=== PATIENT | female | born 1965 | race Hispanic/Latino ===

== ENCOUNTER 2022-04-06 14:14 | Emergency (ER) | payer OTHER ==
--- OUTSIDE RECORDS SUMMARY | 2022-04-06 14:17 | XMS REPORT | Continuity of Care Document ---
:1965 Author Organization [facility] t Address [address] [place] [address] Care Team Providers Name Role Phone Unavailable Unavailable Unavailable Payers Payer Name Policy Type Policy Number Effective Date Expiration Date S ource Problems This patient has no known problems. Allergies, Adverse Reactions, Alerts This patient has no known allergies or adverse reactions. Medications This patient has no known medications. Procedures This patient has no known procedures. Results Test Description Test Time Test Comments Results Result [facility] e Comments - CT MAXIFAC W/O 2018-12-16 Name: ETHAN EL CONTRAST 15:22:00 [facility] : 1965 Age/S: 53 / F [address] [facility] [place] Unit #: [id number] Loc: [place] [address] Phys: Emeka Larose III, MD Acct: [id number] Dis Date: Status: REG CLI PHONE #: [phone] Exam Date: 12/16/2018 1355 FAX #: Reason: CHRONIC SINUS EXAMS: CPT: [id number] CT MAXIFAC W/O CONTRAST 01911 R16 EXAM: - CT MAXIFAC W/O CONTRAST HISTORY: Chronic sinusitis TECHNIQUE: Axial images were obtained through the paranasal sinuses without IV contrast. Sagittal and coronal multiplanar reconstructions were created from the data. One or more of the following dose reduction techniques were used: Automated exposure control, adjustment of the mA and/or kV according to patient size, and/or iterative reconstruction. COMPARISON: None FINDINGS: The frontal sinuses are not pneumatized. The ethmoid sinuses are well-developed and clear. The sphenoid sinuses are well-developed. Moderate because of thickening associated with aerated secretions in both sphenoid sinuses. Bilateral sphenoethmoidal recesses are occluded. Marked focal thinning in the posterior wall of the left sphenoid sinus. The maxillary sinuses are well-developed and clear. The maxillary outflow tracts are patent. Rightward nasal septal deviation. Right middle turbinate ivette bullosa. The visualized facial bones are within normal limits. Specifically, there is no evidence of fracture, dislocation, or aggressive osseous lesions. The globes are normal in size, contour, and position. The course and caliber of the optic nerve sheath complex is within normal limits. The extraocular muscles, intraconal fat, and extraconal fat are within normal limits. The lacrimal glands appear normal. The orbital aguilera and optic canals are normal. The visualized intracranial structures appear normal. No lesion of the visualized skull base or calvarium is present. The visualized PAGE 1 Signed Report (CONTINUED) Name: ETHAN ELland : 1965 Age/S: 53 / F [address] [facility] [place] Unit #: [id number] Loc: [place] [address] Phys: Emeka Larose III, MD Acct: [id number] Dis Date: Status: REG CLI PHONE #: [phone] Exam Date: 12/16/2018 1351 FAX #: Reason: CHRONIC SINUS EXAMS: CPT: [id number] CT MAXIFAC W/O CONTRAST 25231 <Continued> tympanomastoid cavities are unopacified. IMPRESSION: 1. Findings compatible with acute sphenoid sinusitis in the appropriate clinical setting. There is marked focal thinning of the posterior wall of the left sigmoid sinus. 2. Right middle turbinate ivette bullosa and rightward nasal septal deviation. at 1522 Reported and signed by: Daniel Jon M.D. CC: Jack Perez MD; Emeka Larose III, MD Technologist:Emery Gr, RT(R)(CT) CTDI: DLP: Trnscb Date/Time: 12/16/2018 (1522) [email or web address] Orig Print D/T: S: 12/16/2018 (1525) CTDI: DLP: PAGE 2 Signed Report
--- NOTE | 2022-04-06 14:31 | ER ---
Nurse's Notes [facility] Name: Ayesha Arredondo Age: 56 yrs Sex: Female : 1965 Arrival Date: 04/06/2022 Time: 14:16 Bed Waiting Private MD: Diagnosis: Open wound of back s/p cyst removal - encounter for wound check Presentation: 04/06 14:26 Chief complaint: Patient states: Thursday had cyst removed from right scapular area aa5 and wanted wound checked. Coronavirus screen: At this time, the client does not indicate any symptoms associated with coronavirus-19. Ebola Screen: No symptoms or risks identified at this time. Initial Sepsis Screen: Does the patient meet any 2 criteria? No. Patient's initial sepsis screen is negative. Does the patient have a suspected source of infection? No. Patient's initial sepsis screen is negative. Risk Assessment: Do you want to hurt yourself or someone else? Patient reports no desire to harm self or others. Onset of symptoms was March 2022. 14:26 Method Of Arrival: Ambulatory aa5 14:26 Acuity: SANTOSH 5 aa5 Historical: - Allergies: 14:28 hydromorphone HCl; aa5 14:28 Macrobid; aa5 14:28 Nitrofurantoin; aa5 - PMHx: 14:28 allergies; Depressive disorder; aa5 - Immunization history:: Adult Immunizations unknown. - Social history:: Smoking status: Patient reports the use of cigarette tobacco products, smokes one-half pack cigarettes per day. Assessment: 14:30 Reassessment: Patient is alert, oriented x 3, equal unlabored respirations, skin aa5 warm/dry/pink. Vital Signs: 14:26 BP 126 / 79; Pulse 99; Resp 18 S; Temp 97.7(TE); Pulse Ox 95% on R/A; aa5 ED Course: 14:16 Patient arrived in ED. as 14:21 Mehreen Bran [facility]C [facility] kb 14:21 Jonny Jean MD is Attending Physician. kb 14:26 Arm band placed on. aa5 14:28 Triage completed. aa5 14:30 No provider procedures requiring assistance completed. Patient did not have IV access aa5 during this emergency room visit. Administered Medications: No medications were administered Outcome: 14:30 Discharge ordered by . evan 14:30 Discharged to home ambulatory. aa5 14:30 Condition: good 14:30 Discharge instructions given to patient, Instructed on discharge instructions, follow up and referral plans. Demonstrated understanding of instructions, follow-up care. 14:33 Patient left the ED. aa5 Signatures: Mehreen Bran, WELDING EQUIPMENT REPAIRER SUPERVISOR-C MYA-Alivia Bustamante Audri, RN RN aa5 Corrections: (The following items were deleted from the chart) 14: 14:28 Allergies: metronidazole; aa5 aa5 14:30 14:28 PMHx: allegies; aa5 aa5
--- NOTE | 2022-04-06 14:31 | EDPHYS ---
Physician Documentation [facility] Name: Ayesha Arredondo Age: 56 yrs Sex: Female : 1965 Arrival Date: 04/06/2022 Time: 14:16 Bed Waiting Private MD: ED Physician Jonny Jean HPI: 04/06 15:19 This 56 yrs old Female presents to ER via Ambulatory with complaints of Wound kb Check. 15:19 Patient presents to ED for recheck of: open wound s/p cyst removal. The affected area kb is on the right scapular area. Previous treatment: The patient was initially treated 5 day(s) ago, the care was rendered at the patient's primary care provider's office. The patient has not experienced similar symptoms in the past. The patient has not recently seen a physician. Pt states she had a cyst removed on Thursday and when she took the bandage off today she still saw a hole so she wanted to get it looked at. States "I thought it would have closed up by now.". Historical: - Allergies: 14:28 hydromorphone HCl; aa5 14:28 Macrobid; aa5 14:28 Nitrofurantoin; aa5 - PMHx: 14:28 allergies; Depressive disorder; aa5 - Immunization history:: Adult Immunizations unknown. - Social history:: Smoking status: Patient reports the use of cigarette tobacco products, smokes one-half pack cigarettes per day. ROS: 15:17 Constitutional: Negative for fever, chills, and weight loss. kb 15:17 Skin: Positive for of the right scapular area, open wound . 15:17 All other systems are negative. Exam: 15:17 Constitutional: This is a well developed, well nourished patient who is awake, alert, kb and in no acute distress. Head/Face: Normocephalic, atraumatic. Respiratory: Respirations even and unlabored. No increased work of breathing. Talking in full sentences MS/ Extremity: Pulses equal, no cyanosis. Neurovascular intact. Full, normal range of motion. Neuro: Awake and alert, GCS 15, oriented to person, place, time, and situation. Moves all extremities. Normal gait. Psych: Awake, alert, with orientation to person, place and time. Behavior, mood, and affect are within normal limits. 15:17 Skin: Wound recheck: open circular wound to right scapular area s/o cyst removal. No redness, drainage, swelling or other signs of infection, . Vital Signs: 14:26 BP 126 / 79; Pulse 99; Resp 18 S; Temp 97.7(TE); Pulse Ox 95% on R/A; aa5 MDM: 14:27 Patient medically screened. kb 15:19 Data reviewed: vital signs, nurses notes. Data interpreted: Pulse oximetry: on room air kb is 95 %. Interpretation: normal. Counseling: I had a detailed discussion with the patient and/or guardian regarding: the historical points, exam findings, and any diagnostic results supporting the discharge/admit diagnosis, the need for outpatient follow up, a family practitioner, to return to the emergency department if symptoms worsen or persist or if there are any questions or concerns that arise at home. Administered Medications: No medications were administered Disposition: 16:07 Co-signature as Attending Physician, Jonny Jean MD I agree with the assessment and kdr plan of care. Disposition Summary: 04/06/22 14:30 Discharge Ordered Location: Home kb Condition: Stable kb Diagnosis - Open wound of back s/p cyst removal - encounter for wound check kb Followup: kb - With: Emergency Department - When: As needed - Reason: Worsening of condition Followup: kb - With: Private Physician - When: 2 - 3 days - Reason: Recheck today's complaints, Continuance of care, Re-evaluation by your physician Discharge Instructions: - Discharge Summary Sheet kb - Epidermal Cyst Removal, Care After kb Forms: - Medication Reconciliation Form kb - Thank You Letter kb - Antibiotic Education kb - Prescription Opioid Use kb Signatures: Mehreen Bran, ENAMEL APPLIER-C ENAMEL APPLIER-Asafb Jonny Jean MD MD kdr Calderon, Audri, RN RN aa5 Corrections: (The following items were deleted from the chart) 14:30 14:28 Allergies: metronidazole; aa5 aa5 14:30 14:28 PMHx: allegies; aa5 aa5
[2022-04-06 15:57] VITALS: BP 126/79; TEMP 97.7; O2SAT 95
== END 2022-04-06 14:33 | disposition home or self-care (01) ==
LOC: ER 14:14
DX: S21.201D Unspecified open wound of right back wall of thorax without penetration into thoracic cavity, subsequent encounter (principal); Z98.890 Other specified postprocedural states; F17.210 Nicotine dependence, cigarettes, uncomplicated; Z88.5 Allergy status to narcotic agent; Z88.8 Allergy status to other drugs, medicaments and biological substances
CPT/HCPCS: 99281

== ENCOUNTER 2022-10-05 14:50 | Emergency (ER) | payer OTHER ==
--- OUTSIDE RECORDS SUMMARY | 2022-10-05 14:53 | XMS REPORT | Continuity of Care Document ---
:1965 Author Organization [facility] t Address [address] [place] [address] Care Team Providers Name Role Phone Unavailable [...] Description Test Time Test Comments Results Result [facility] e Comments - CT MAXIFAC W/O 2018-12-16 Name: ETHAN EL CONTRAST 15:22:00 [facility] : 1965 Age/S: 53 / F [address] [address] Unit #: [id number] Loc: [place] [address] Phys: Emeka Larose III, MD Acct: [id number] Dis Date: Status: REG CL PHONE #: [phone] Exam Date: 12/16/2018 1356 FAX #: Reason: CHRONIC SINUS EXAMS: CPT: [id number] CT MAXIFAC W/O CONTRAST 28554 R16 EXAM: - CT MAXIFAC W/O CONTRAST [...] PAGE 1 Signed Report (CONTINUED) Name: ETHAN EL : 1965 Age/S: 53 / F [address] [facility] Unit #: [id number] Loc: [place] [address] Phys: Emeka Larose III, MD Acct: [id number] Dis Date: Status: REG CLI PHONE #: [phone] Exam Date: 12/16/2018 1358 FAX #: Reason: CHRONIC SINUS EXAMS: CPT: [id number] CT MAXIFAC W/O CONTRAST 18508 (Continued) tympanomastoid cavities are unopacified. IMPRESSION: 1. Findings compatible with acute sphenoid sinusitis in the appropriate clinical setting. There is marked focal thinning of the posterior wall of the left sigmoid sinus. 2. Right middle turbinate ivette bullosa and rightward nasal septal deviation. at 1522 Reported and signed by: Daniel Jon M.D. CC: Jack Perez MD; Emeka Larose III, MD Technologist:Emery Gr RT(R)(CT) CTDI: DLP: Trnscb Date/Time: 12/16/2018 (1522) [email or web address] Orig Print D/T: S: 12/16/2018 (8524) CTDI: JESUSP: PAGE 2 Signed Report
[2022-10-05] MEDS ORDERED: KETOROLAC 30 MG/ML INJ ONE (15:40)
[2022-10-05 16:15] LABS: Absolute Lymphocytes (CBC) 3.2 K/uL (0.7-4.9); Hematocrit 44.4 % (36.0-45.0); Lymphocytes % 41.2 % (15.3-44.8); MCV 92.1 fL (80-100); MPV 7.6 fL (7.6-11.3); RBC Red Blood Cell Count 4.82 M/uL (3.86-4.86)
[2022-10-05 16:24] LABS: Potassium 3.7 mmol/L (3.5-5.1)
--- NOTE | 2022-10-05 17:57 | ER ---
Nurse's Notes [facility] Name: Ayesha Arredondo Age: 57 yrs Sex: Female : 1965 Arrival Date: 10/05/2022 Time: 14:53 Bed 6 Private MD: Diagnosis: Headache;Other fatigue;Pain in left shoulder Presentation: 10/05 15:02 Chief complaint: Patient states: everything started 3 months ago with increased kb3 allergies. PCP started me on a nasal spray in addition to the loratidine and Singulair that I already take. For the last 2 weeks I have had a left-sided headache 9/10 pressure that goes into my left shoulder and sometimes causes eye pain. Denies N/V/fever/chills. I feel much more fatigued that normal. Coronavirus screen: Vaccine status: Patient reports receiving the 2nd dose of the covid vaccine. Client denies travel out of the [place] in the last 14 days. Ebola Screen: Patient negative for fever greater than or equal to 101.5 degrees Fahrenheit, and additional compatible Ebola Virus Disease symptoms Patient denies exposure to infectious person. Patient denies travel to an Ebola-affected area in the 21 days before illness onset. No symptoms or risks identified at this time. Initial Sepsis Screen: Does the patient meet any 2 criteria? No. Patient's initial sepsis screen is negative. Does the patient have a suspected source of infection? No. Patient's initial sepsis screen is negative. Risk Assessment: Do you want to hurt yourself or someone else? Patient reports no desire to harm self or others. Onset of symptoms is unknown. 15:02 Method Of Arrival: Ambulatory kb3 15:02 Acuity: SANTOSH 3 kb3 Triage Assessment: 15:06 Headache History: Denies prior headaches. General: Appears in no apparent distress. kb3 Behavior is calm, cooperative. Pain: Complains of pain in left temporal area and left occipital area Pain radiates to left trapezius Pain currently is 9 out of 10 on a pain scale. Quality of pain is described as aching, pressure, Pain began 2 weeks-3 months. Neuro: No deficits noted. Reports headache. Historical: - Allergies: 15:06 hydromorphone HCl; kb3 15:06 Macrobid; kb3 - Home Meds: 15:06 Singulair 10 mg Oral tab 1 tab once daily [Active]; loratadine 10 mg oral TbDi 1 tab kb3 once daily [Active]; - PMHx: 15:06 allergies; depressive disorder; Hypercholesterolemia; kb3 - PSHx: 15:06 None; kb3 - Immunization history:: Adult Immunizations up to date, Client reports receiving the 2nd dose of the Covid vaccine, Last tetanus immunization: unknown. - Social history:: Smoking status: Patient reports the use of cigarette tobacco products, smokes one-half pack cigarettes per day. Screenin:45 Abuse screen: Denies threats or abuse. Nutritional screening: No deficits noted. vg1 Tuberculosis screening: No symptoms or risk factors identified. Fall Risk No fall in past 12 months (0 pts). No secondary diagnosis (0 pts). IV access (20 points). Ambulatory Aid- None/Bed Rest/Nurse Assist (0 pts). Gait- Normal/Bed Rest/Wheelchair (0 pts) Mental Status- Oriented to own ability (0 pts). Total Nation Fall Scale indicates No Risk (0-24 pts). Assessment: 15:45 General: Appears in no apparent distress. uncomfortable, Behavior is calm, cooperative. vg1 Pain: Complains of pain in head, back, neck Pain currently is 9 out of 10 on a pain scale. Pain began 2-3 days ago. Neuro: Level of Consciousness is awake, alert, obeys commands, Oriented to person, place, time, situation, Reports blurred vision headache photophobia Denies dizziness. Cardiovascular: Patient's skin is warm and dry. Respiratory: Airway is patent Respiratory effort is even, unlabored. GI: Abdomen is flat, non-distended, Reports nausea. : No signs and/or symptoms were reported regarding the genitourinary system. EENT: No signs and/or symptoms were reported regarding the EENT system. Derm: Skin is pink, warm \\T\\ dry. Musculoskeletal: Circulation, motion, and sensation intact. 16:55 Reassessment: Patient appears in no apparent distress at this time. Patient and/or vg1 family updated on plan of care and expected duration. Pain level reassessed. Patient is alert, oriented x 3, equal unlabored respirations, skin warm/dry/pink. RATED PAIN 6/10, STATED FEELING "A LITTLE BETTER". Vital Signs: 15:02 BP 139 / 88; Pulse 97; Resp 20; Temp 98.3; Pulse Ox 97% ; Weight 90.72 kg; Height 5 ft. kb3 2 in. (157.48 cm); Pain 9/10; 15:45 BP 150 / 94; Pulse 87; Resp 17; Pulse Ox 98% on R/A; vg1 16:30 BP 135 / 82; Pulse 80; Resp 15; Pulse Ox 98% on R/A; vg1 15:02 Body Mass Index 36.58 (90.72 kg, 157.48 cm) kb3 ED Course: 14:53 Patient arrived in ED. as 14:59 Hayden Solano DO is Attending Physician. ms3 15:06 Triage completed. kb3 15:06 Arm band placed on right wrist. kb3 15:23 Gretchen Morrell, DHEERAJ is Primary Nurse. vg1 15:45 Patient has correct armband on for positive identification. Bed in low position. Call vg1 light in reach. Side rails up X 1. 15:48 Inserted saline lock: 20 gauge in right antecubital area, using aseptic technique. vg1 Blood collected. 17:56 Seun Castellanos DO is Referral Physician. ms3 Administered Medications: 15:50 Drug: Ketorolac 15 mg Route: IVP; Site: right antecubital; vg1 17:00 Follow up: Response: No adverse reaction; Marked relief of symptoms vg1 Medication: 15:45 VIS not applicable for this client. vg1 Outcome: 17:57 Discharge ordered by . ms3 19:12 Patient left the ED. kr3 Signatures: Alivia Allen as Gretchen Morrell, DHEERAJ RN vg1 Hayden Solano DO DO ms3 Diana Claros RN RN kr3 Maria Fernanda Miles, RN RN kb3 Corrections: (The following items were deleted from the chart) 15:08 15:06 Allergies: Nitrofurantoin; kb3 kb3
--- NOTE | 2022-10-05 17:57 | EDPHYS ---
Physician Documentation [facility] Name: Ayesha Arredondo Age: 57 yrs Sex: Female : 1965 Arrival Date: 10/05/2022 Time: 14:53 Bed 6 Private MD: ED Physician Hayden Solano HPI: 10/05 15:06 This 57 yrs old Female presents to ER via Unassigned with complaints of ms3 Headache, Shoulder Pain, Eye Pain, fatigue. 15:06 The patient complains of pain to the left restoration. The patient describes the headache as ms3 a pressure. Onset: The symptoms/episode began/occurred acutely, 2 week(s) ago. Associated signs and symptoms: Pertinent negatives: dizziness. Severity of symptoms: At its worst the pain was severe, in the emergency department the pain is unchanged. The symptoms are alleviated by over the counter pain medication, Tylenol, the symptoms are aggravated by nothing. Historical: - Allergies: 15:06 hydromorphone HCl; kb3 15:06 Macrobid; kb3 - Home Meds: 15:06 Singulair 10 mg Oral tab 1 tab once daily [Active]; loratadine 10 mg oral TbDi 1 tab kb3 once daily [Active]; - PMHx: 15:06 allergies; depressive disorder; Hypercholesterolemia; kb3 - PSHx: 15:06 None; kb3 - Immunization history:: Adult Immunizations up to date, Client reports receiving the 2nd dose of the Covid vaccine, Last tetanus immunization: unknown. - Social history:: Smoking status: Patient reports the use of cigarette tobacco products, smokes one-half pack cigarettes per day. ROS: 15:06 Neck: Negative for injury, pain, and swelling, Cardiovascular: Negative for chest pain, ms3 and palpitations. Respiratory: Negative for shortness of breath, cough, wheezing, and pleuritic chest pain, Abdomen/GI: Negative for abdominal pain, nausea, vomiting, diarrhea, and constipation, Back: Negative for injury and pain, MS/Extremity: Negative for injury and deformity, Skin: Negative for injury, rash, and discoloration. 15:06 Constitutional: Positive for fatigue. 15:06 Neuro: Positive for headache. 15:11 All other systems are negative. ms3 Exam: 15:11 Constitutional: This is a well developed, well nourished patient who is awake, alert, ms3 and in no acute distress. Head/Face: Normocephalic, atraumatic. Neck: Trachea midline, no cervical lymphadenopathy. Supple, full range of motion without nuchal rigidity, or vertebral point tenderness. No Meningismus. Chest/axilla: Normal chest wall appearance and motion. Nontender with no deformity. Cardiovascular: Regular rate and rhythm with a normal S1 and S2. No gallops, murmurs, or rubs. Normal PMI, no JVD. No pulse deficits. Respiratory: Lungs have equal breath sounds bilaterally, clear to auscultation and percussion. No rales, rhonchi or wheezes noted. No increased work of breathing, no retractions or nasal flaring. Abdomen/GI: Soft, non-tender, with normal bowel sounds. No distension or tympany. No guarding or rebound. No evidence of tenderness throughout. Skin: Warm, dry with normal turgor. Normal color with no rashes, no lesions, and no evidence of cellulitis. MS/ Extremity: Pulses equal, no cyanosis. Neurovascular intact. Full, normal range of motion. Vital Signs: 15:02 BP 139 / 88; Pulse 97; Resp 20; Temp 98.3; Pulse Ox 97% ; Weight 90.72 kg; Height 5 ft. kb3 2 in. (157.48 cm); Pain 9/10; 15:45 BP 150 / 94; Pulse 87; Resp 17; Pulse Ox 98% on R/A; vg1 16:30 BP 135 / 82; Pulse 80; Resp 15; Pulse Ox 98% on R/A; vg1 15:02 Body Mass Index 36.58 (90.72 kg, 157.48 cm) kb3 MDM: 15:05 Patient medically screened. ms3 17:59 Data reviewed: vital signs, nurses notes, lab test result(s), and as a result, I will ms3 discharge patient. Counseling: I had a detailed discussion with the patient and/or guardian regarding: the historical points, exam findings, and any diagnostic results supporting the discharge/admit diagnosis, lab results, the need for outpatient follow up, to return to the emergency department if symptoms worsen or persist or if there are any questions or concerns that arise at home. ED course: Patient states symptoms have improved, patient is alert and oriented x4, in no apparent distress, nontoxic-appearing. Patient to follow-up with her primary care physician in 2 to 3 days. Patient understands and agrees with plan. All questions were answered. Return precautions discussed include worsening symptoms, or any other concerns. 10/05 15:05 Order name: CBC with Diff; Complete Time: 16:24 ms3 10/05 15:05 Order name: BMP; Complete Time: 16:24 ms3 Administered Medications: 15:50 Drug: Ketorolac 15 mg Route: IVP; Site: right antecubital; vg1 17:00 Follow up: Response: No adverse reaction; Marked relief of symptoms vg1 Disposition Summary: 10/05/22 17:57 Discharge Ordered Location: Home ms3 Condition: Stable ms3 Diagnosis - Headache ms3 - Other fatigue ms3 - Pain in left shoulder ms3 Followup: ms3 - With: Seun Castellanos DO - When: 2 - 3 days - Reason: Recheck today's complaints Discharge Instructions: - Discharge Summary Sheet ms3 - General Headache Without Cause ms3 - Musculoskeletal Pain ms3 Forms: - Medication Reconciliation Form ms3 - Thank You Letter ms3 - Antibiotic Education ms3 - Prescription Opioid Use ms3 Prescriptions: - Ibuprofen 600 mg Oral Tablet - take 1 tablet by ORAL route every 6 hours As needed take with food; 30 tablet; ms3 Refills: 0, Product Selection Permitted Signatures: Dispatcher [employer] Gretchen Sauceda, RN RN vg1 Hayden Solano DO DO ms3 Maria Fernanda Miles, RN RN kb3 Corrections: (The following items were deleted from the chart) 15:08 15:06 Allergies: Nitrofurantoin; kb3 kb3
[2022-10-05 19:23] VITALS: TEMP 98.3
[2022-10-05 19:28] VITALS: O2SAT 98
[2022-10-05 19:38] VITALS: BP 135/82
== END 2022-10-05 19:12 | disposition home or self-care (01) ==
LOC: ER 14:50
DX: R51.9 Headache, unspecified (principal); R53.83 Other fatigue; M25.512 Pain in left shoulder; F32.A Depression, unspecified; F17.210 Nicotine dependence, cigarettes, uncomplicated; Z88.5 Allergy status to narcotic agent; Z88.8 Allergy status to other drugs, medicaments and biological substances
CPT/HCPCS: 36415; 80048; 85025; 96374; 99283